=== PATIENT | female | born 1995 | race Caucasian/White ===

== ENCOUNTER 2022-03-26 15:41 | Outpatient (CLI) | payer OTHER | END 2022-03-26 17:05 | disposition home or self-care (01) | LOC: GENOP 15:41 | DX: O99.891 Other specified diseases and conditions complicating pregnancy (principal); N89.8 Other specified noninflammatory disorders of vagina; Z3A.36 36 weeks gestation of pregnancy | CPT/HCPCS: 81001; 83518; G0463 ==